=== PATIENT | male | born 1985 | race Hispanic/Latino ===

== ENCOUNTER 2016-10-25 21:57 | Emergency (ER) | payer MEDICARE, SELFPAY ==
[2016-10-25 22:43] VITALS: O2SAT 98
--- NOTE | 2016-10-25 23:09 | ED.PDOC ---
History of Present Illness - General Chief Complaint: Respiratory Problem Stated Complaint: cough and conjestion Time Seen by Provider: 10/25/16 22:07 Source: patient Exam Limitations: no limitations - History of Present Illness Comments: Satated was sick with same symptoms got better but 3 days ago started with nasal congestion and this morning with constant cough. Timing/Duration: other - 3 days ago Cough Quality/Degree: severe, productive cough Possible Cause: illness exposure Improving Factors: nothing Worsening Factors: nothing Associated Symptoms: sinus infection Respiratory Risk Factors: no cause identified Allergies/Adverse Reactions: Allergies NO KNOWN ALLERGY Allergy (Verified 10/25/16 22:00) Home Medications: Ambulatory Orders Aspirin [(None)] 325 mg PO DAILY 06/05/14 Atorvastatin Calcium [Lipitor] 20 mg PO DAILY 06/05/14 Azithromycin Tab [Zithromax] 250 mg PO QDAC #5 tab 06/05/14 Clopidogrel Bisulfate [Plavix] 75 mg PO DAILY 06/05/14 Cyclobenzaprine HCl [Flexeril] 10 mg PO BID PRN #10 tab 06/05/14 Lisinopril 5 mg PO DAILY 06/05/14 Metformin HCl 500 mg PO DAILY 06/05/14 Metoprolol Tartrate 50 mg PO BID 06/05/14 Azithromycin [Zithromax Z-Zoltan] 1 ea PO DAILY #1 pack 12/16/14 Cefuroxime Axetil [Ceftin] 500 mg PO BID #20 tab 10/25/16 Oxymetazoline HCl [Afrin Nasal [place]] 1 spray NA BID PRN #1 spr 10/25/16 Pseudoephedrine HCl [Sudafed Congestion] 30 mg PO BID #30 tab 10/25/16 Review of Systems - Review of Systems Constitutional: States: fever, malaise EENTM: States: see HPI, nose congestion Respiratory: States: see HPI, cough Cardiology: States: no symptoms reported, other - hx of mi with cardiac stents Gastrointestinal/Abdominal: States: no symptoms reported Genitourinary: States: no symptoms reported Musculoskeletal: States: no symptoms reported Skin: States: no symptoms reported Neurological: States: no symptoms reported Endocrine: States: no symptoms reported Past Medical History (General) - Patient Medical History Hx Cardiac Disorders: Yes Hx Congestive Heart Failure: No Hx Hypertension: Yes Hx Diabetes: Yes Surgical History: other - Vaccination History Hx Tetanus, Diphtheria Vaccination: No Hx Influenza Vaccination: No Hx Pneumococcal Vaccination: No Immunizations Up to Date: No - Social History Hx Tobacco Use: No Hx Alcohol Use: No Hx Substance Use: No Hx Substance Use Treatment: No Hx Depression: No Hx Physical Abuse: No Hx Emotional Abuse: No Hx Suspected Abuse: No - Female History Patient is a Female of Child Bearing Age (10 -59 yrs old): No Patient : No Family Medical History - Family History Father Living Status: Age at (years of age): 50 Cause of : cancer Hx Family Congestive Heart Failure: Yes Hx Cardiac Disease: Yes Hx Family Cancer: Yes Physical Exam - Physical Exam General Appearance: Alert, Comfortable, No apparent distress Eye Exam: bilateral normal ENT Exam: TMs normal, nasal congestion, pharyngeal erythema Neck: non-tender, supple, normal inspection Respiratory: chest non-tender, lungs clear, normal breath sounds, no respiratory distress, no accessory muscle use Cardiovascular/Chest: normal peripheral pulses, regular rate, rhythm, no edema, no gallop, no JVD, no murmur Gastrointestinal/Abdominal: normal bowel sounds, non tender, soft, no organomegaly Extremity: normal range of motion, non-tender, normal inspection Neurologic: alert, normal mood/affect Skin Exam: normal color, warm/dry Lymphatic: no adenopathy Progress - Progress Progress: 10/25/16 23:39 rapid strep/flu swab negative Departure - Departure Clinical Impression: Sinusitis, acute Qualifiers: Sinusitis location: unspecified location Recurrence: not specified Qualifier Code: (J01.90) Acute sinusitis, unspecified Time of Disposition: 23:41 Disposition: Discharge to Home or Self Care Condition: Good Departure Forms: ED Discharge - Pt. Copy, Patient Portal Self Enrollment Instructions: DI for Sinusitis Prescriptions: Oxymetazoline HCl [Afrin Nasal [place]] 1 spray NA BID PRN #1 spr PRN Reason: Congestion Cefuroxime Axetil [Ceftin] 500 mg PO BID #20 tab Pseudoephedrine HCl [Sudafed Congestion] 30 mg PO BID #30 tab Home Medications: Ambulatory Orders Aspirin [(None)] 325 mg PO DAILY 06/05/14 Atorvastatin Calcium [Lipitor] 20 mg PO DAILY 06/05/14 Azithromycin Tab [Zithromax] 250 mg PO QDAC #5 tab 06/05/14 Clopidogrel Bisulfate [Plavix] 75 mg PO DAILY 06/05/14 Cyclobenzaprine HCl [Flexeril] 10 mg PO BID PRN #10 tab 06/05/14 Lisinopril 5 mg PO DAILY 06/05/14 Metformin HCl 500 mg PO DAILY 06/05/14 Metoprolol Tartrate 50 mg PO BID 06/05/14 Azithromycin [Zithromax Z-Zoltan] 1 ea PO DAILY #1 pack 12/16/14 Cefuroxime Axetil [Ceftin] 500 mg PO BID #20 tab 10/25/16 Oxymetazoline HCl [Afrin Nasal [place]] 1 spray NA BID PRN #1 spr 10/25/16 Pseudoephedrine HCl [Sudafed Congestion] 30 mg PO BID #30 tab 10/25/16
[2016-10-25] MEDS ORDERED: diphenhydrAMINE HCL 25 MG CAP PO ONE (23:41)
[2016-10-25] MEDS ORDERED: CEFUROXIME AXETIL TAB 250 MG TAB PO ONE (23:49)
[2016-10-25] MEDS ORDERED: DEXTROMET/GUAIFENESIN 600/30 TAB PO ONE (23:50)
[2016-10-26 00:06] VITALS: BP 122/78; TEMP 99.4
[2016-10-26] MEDS ORDERED: DEXTROMET/GUAIFENESIN 600/30 TAB PO SCH (09:00)
== END 2016-10-25 23:55 | disposition home or self-care (01) ==
LOC: ER 21:57
DX: J01.90 Acute sinusitis, unspecified (principal); I25.2 Old myocardial infarction; I10 Essential (primary) hypertension; E11.9 Type 2 diabetes mellitus without complications; Z98.61 Coronary angioplasty status; Z79.82 Long term (current) use of aspirin; Z79.02 Long term (current) use of antithrombotics/antiplatelets; Z79.899 Other long term (current) drug therapy
CPT/HCPCS: 87070; 87804; 87880; Q0163

== ENCOUNTER 2018-01-12 16:20 | Emergency (ER) | payer MEDICARE ==
[2018-01-12] MEDS ORDERED: SODIUM CHLORIDE 0.9% 1000ML 1,000 ML IVS ONE ×2 (16:45→18:42)
[2018-01-12 16:57] VITALS: BP 130/83; TEMP 97.8; O2SAT 97
--- NOTE | 2018-01-12 17:03 | RAD ---
EXAM DESCRIPTION: Abdomen Series CLINICAL HISTORY: 32 years Male ,right-sided abdominal pain for one week, 15 pound weight loss in the last month COMPARISON: None. TECHNIQUE: Frontal view chest x-ray and two views of the abdomen. FINDINGS: The cardiomediastinal silhouette appears unremarkable. No consolidating infiltrates or pleural effusions. Moderate fecal material in the colon. No free air is identified beneath the hemidiaphragms. No dilated loops of bowel to suggest obstruction. IMPRESSION: No acute plain film abnormality is identified. Electronically signed by: Dian Wheatley MD 01/12/2018 5:00 PM CDT
[2018-01-12] MEDS ORDERED: MAGNESIUM SULFATE PREMIX 2GM 2 GM in PREMIX BAG 1 BAG IVPB ONE (17:29)
[2018-01-12] MEDS ORDERED: ONDANSETRON ODT 8 MG TAB SL ONE (17:30)
[2018-01-12] MEDS ORDERED: ALUMINUM & MAGNESIUM HYDROXIDE 30 ML UD PO ONE (17:30)
[2018-01-12] MEDS ORDERED: MAGNESIUM SULFATE PREMIX 2GM 50 ML IVPB ONE (17:47)
--- NOTE | 2018-01-12 18:11 | CT ---
CT abdomen and pelvis with contrast on 01/12/2018 CLINICAL INDICATION: Right-sided abdominal pain TECHNIQUE: Multiple axial images are obtained throughout the abdomen and pelvis following the administration of IV contrast. This exam was performed according to our departmental dose-optimization program, which includes automated exposure control, adjustment of the mA and/or kV according to patient size and/or use of iterative reconstruction technique. Total DLP is 704.36 mGy*cm. COMPARISON: 06/05/2014 FINDINGS: Abdomen: There is minimal right basilar atelectasis. The lung bases are otherwise clear. Right-sided gynecomastia is partially imaged. There is fatty infiltration of the liver. The solid abdominal organs are otherwise unremarkable. There is no abdominal adenopathy. There is no free fluid or free air within the abdomen. The abdominal portion of the GI tract is unremarkable. Pelvis: There is no free fluid in the pelvis. There is calcification of the vas deferens indicative of diabetes. There is no pelvic adenopathy. The pelvic portion of the GI tract including the appendix is unremarkable. No acute bony abnormality is noted. IMPRESSION: 1. Fatty infiltration of the liver. 2. No acute abnormality. Electronically signed by: Oracio Irby 01/12/2018 6:09 PM CDT
[2018-01-12] MEDS ORDERED: SUCRALFATE 1 GM/10 ML 1 GM UD PO ONE (18:43)
[2018-01-12] MEDS ORDERED: MAGNESIUM HYDROXIDE 30 ML UD PO ONE (19:22)
--- NOTE | 2018-01-12 19:31 | ED.PDOC ---
History of Present Illness - General Chief Complaint: Abdominal Pain Stated Complaint: ABDOMINAL PAIN Time Seen by Provider: 01/12/18 16:45 Source: patient Exam Limitations: no limitations - History of Present Illness Initial Comments: the patient's 32-year-old male presenting to the emergency room secondary to abdominal pain for last week. He has been off of his diabetes medications for some time. He has been having some abdominal cramping but no definite fevers. No diarrhea. He does have some constipation issues. He has been nauseated and had a poor appetite. He is having pain mainly in the right side of the abdomen.more significantly he has had a 17 pound weight loss in the last 2 months. No history of any cancer. He still has his gallbladder and appendix. Physical exam shows diffuse discomfort on the right side. No rebound or peritoneal signs. Moderate stool is palpable. Timing/Duration: unsure Severity: moderate Improving Factors: nothing Worsening Factors: nothing Associated Symptoms: loss of appetite, malaise, nausea/vomiting Allergies/Adverse Reactions: Allergies NO KNOWN ALLERGY Allergy (Verified 10/25/16 22:00) Home Medications: Ambulatory Orders Aspirin [(None)] 325 mg PO DAILY 06/05/14 Atorvastatin Calcium [Lipitor] 20 mg PO DAILY 06/05/14 Azithromycin Tab [Zithromax] 250 mg PO QDAC #5 tab 06/05/14 Clopidogrel Bisulfate [Plavix] 75 mg PO DAILY 06/05/14 Cyclobenzaprine HCl [Flexeril] 10 mg PO BID PRN #10 tab 06/05/14 Lisinopril 5 mg PO DAILY 06/05/14 Metformin HCl 500 mg PO DAILY 06/05/14 Metoprolol Tartrate 50 mg PO BID 06/05/14 Azithromycin [Zithromax Z-Zoltan] 1 ea PO DAILY #1 pack 12/16/14 Cefuroxime Axetil [Ceftin] 500 mg PO BID #20 tab 10/25/16 Oxymetazoline HCl [Afrin Nasal [place]] 1 spray NA BID PRN #1 spr 10/25/16 Pseudoephedrine HCl [Sudafed Congestion] 30 mg PO BID #30 tab 10/25/16 Review of Systems - Review of Systems Constitutional: States: malaise, weakness EENTM: States: no symptoms reported Respiratory: States: no symptoms reported Cardiology: States: no symptoms reported Gastrointestinal/Abdominal: States: abdominal pain, nausea Genitourinary: States: no symptoms reported Musculoskeletal: States: other - generalized body aches Skin: States: no symptoms reported Neurological: States: no symptoms reported Endocrine: States: unexplained weight loss All other Systems: No Change from Baseline Past Medical History (General) - Patient Medical History Hx Cardiac Disorders: Yes Hx Congestive Heart Failure: No Hx Hypertension: Yes Hx Diabetes: Yes Surgical History: other - Vaccination History Hx Tetanus, Diphtheria Vaccination: No Hx Influenza Vaccination: No Hx Pneumococcal Vaccination: No - Social History Hx Tobacco Use: No Hx Alcohol Use: No Hx Substance Use: No Hx Substance Use Treatment: No Hx Depression: No Hx Physical Abuse: No Hx Emotional Abuse: No Hx Suspected Abuse: No - Female History Patient : No Family Medical History - Family History Father Living Status: Age at (years of age): 50 Cause of : cancer Hx Family Congestive Heart Failure: Yes Hx Cardiac Disease: Yes Hx Family Cancer: Yes Physical Exam - Physical Exam General Appearance: Alert, No apparent distress Eye Exam: bilateral normal Ears, Nose, Throat: normal ENT inspection, normal pharynx Neck: full range of motion, supple Respiratory: lungs clear, normal breath sounds, no respiratory distress, no accessory muscle use Cardiovascular/Chest: normal peripheral pulses, regular rate, rhythm, no edema Peripheral Pulses: radial,right: 2+, radial,left: 2+, dorsalis pedis,right: 2+, dorsalis pedis,left: 2+ Gastrointestinal/Abdominal: non tender - mild right-sided discomfort. Palpable stool. 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 Workup indicates dehydration and poorly controlled diabetes along with severe constipation as the cause. The patient needs to increase his fluid intake. He has received 2 L of IV fluids here today. He was also given a dose of milk of magnesia for constipation. He needs to take MiraLAX daily for the next week. Additionally he needs to get his blood sugars under control and get his medication filled that has already been written for him. He should also cotton picker some generic Pepcid over-the- counter and take it twice daily for the next 2 weeks. ER warnings were given for any worsening. He should follow up with his primary care doctor in the middle of the coming week. - Results/Orders Results/Orders: Laboratory Tests 01/12/18 01/12/18 01/12/18 16:46 17:05 17:05 WBC 9.9 RBC 5.67 Hgb 18.4 H Hct 52.5 H MCV 92.7 MCH 32.4 H MCHC 35.1 RDW 13.0 Plt Count 155 MPV 10.1 Absolute Neuts (auto) 6.80 Absolute Lymphs (auto) 2.10 Absolute Monos (auto) 0.80 Absolute Eos (auto) 0.10 Absolute Basos (auto) 0.00 Neutrophils % 69.0 Lymphocytes % 21.7 Monocytes % 8.4 Eosinophils % 0.6 L Basophils % 0.3 PT 11.2 INR 0.990 PTT (SP) 31.8 D-Dimer, Quantitative < 230 Sodium Potassium Chloride Carbon Dioxide Anion Gap BUN Creatinine BUN/Creatinine Ratio Random Glucose Serum Osmolality Lactic Acid Calcium Magnesium Total Bilirubin AST ALT Alkaline Phosphatase LD Total Creatine Kinase 69 CK-MB (CK-2) 1.0 CK-MB (CK-2) % Not Reportable Troponin I < 0.02 B-Natriuretic Peptide 10.3 Serum Total Protein Albumin Globulin Albumin/Globulin Ratio Amylase 34 Lipase TSH Urine Color Urine Appearance Urine pH Ur Specific [place] Urine Protein Urine Glucose (UA) Urine Ketones Urine Blood Urine Nitrite Urine Bilirubin Urine Urobilinogen Ur Leukocyte Esterase Urine RBC Urine WBC Ur Epithelial Cells Urine Bacteria 01/12/18 01/12/18 01/12/18 17:05 17:05 18:31 WBC RBC Hgb Hct MCV MCH MCHC RDW Plt Count MPV Absolute Neuts (auto) Absolute Lymphs (auto) Absolute Monos (auto) Absolute Eos (auto) Absolute Basos (auto) Neutrophils % Lymphocytes % Monocytes % Eosinophils % Basophils % PT INR PTT (SP) D-Dimer, Quantitative Sodium 135 Potassium 3.4 L Chloride 97 L Carbon Dioxide 28 Anion Gap 13.4 BUN 12 Creatinine 0.53 L BUN/Creatinine Ratio 22.6 H Random Glucose 235 H Serum Osmolality 277.4 Lactic Acid 1.1 Calcium 9.6 Magnesium 1.7 L Total Bilirubin 1.3 H AST 15 ALT 15 Alkaline Phosphatase 81 LD Total 92 Creatine Kinase CK-MB (CK-2) CK-MB (CK-2) % Troponin I B-Natriuretic Peptide Serum Total Protein 7.8 Albumin 4.3 Globulin 3.5 Albumin/Globulin Ratio 1.2 Amylase Lipase 75 H TSH 1.21 Urine Color Yellow Urine Appearance Clear Urine pH 5.0 Ur Specific [place] 1.010 Urine Protein Negative Urine Glucose (UA) 500 H Urine Ketones 40 H Urine Blood Negative Urine Nitrite Negative Urine Bilirubin Negative Urine Urobilinogen 1.0 Ur Leukocyte Esterase Negative Urine RBC 0 Urine WBC 0-1 Ur Epithelial Cells 0-[address] scan of abdomen and pelvis shows no acute pathology. Acute abdominal series shows large amount of stool. Departure - Departure Clinical Impression: Dehydration Uncontrolled diabetes mellitus Qualifiers: Diabetes mellitus type: type 2 Diabetes mellitus complication status: with unspecified complications Diabetes mellitus intermediate insulin use: without intermediate use Qualified Code(s): E11.8 - Type 2 diabetes mellitus with unspecified complications; E11.65 - Type 2 diabetes mellitus with hyperglycemia Constipation Qualifiers: Constipation type: unspecified constipation type Qualified Code(s): K59.00 - Constipation, unspecified Disposition: Discharge to Home or Self Care Condition: Fair Departure Forms: ED Discharge - Pt. Copy, Patient Portal Self Enrollment Diet: diabetic diet Activity: increase activity as tolerated Referrals: Patricia Ghosh NP [Primary Care Provider] - 1-5 Days Home Medications: Ambulatory Orders Aspirin [(None)] 325 mg PO DAILY 06/05/14 Atorvastatin Calcium [Lipitor] 20 mg PO DAILY 06/05/14 Azithromycin Tab [Zithromax] 250 mg PO QDAC #5 tab 06/05/14 Clopidogrel Bisulfate [Plavix] 75 mg PO DAILY 06/05/14 Cyclobenzaprine HCl [Flexeril] 10 mg PO BID PRN #10 tab 06/05/14 Lisinopril 5 mg PO DAILY 06/05/14 Metformin HCl 500 mg PO DAILY 06/05/14 Metoprolol Tartrate 50 mg PO BID 06/05/14 Azithromycin [Zithromax Z-Zoltan] 1 ea PO DAILY #1 pack 12/16/14 Cefuroxime Axetil [Ceftin] 500 mg PO BID #20 tab 10/25/16 Oxymetazoline HCl [Afrin Nasal [place]] 1 spray NA BID PRN #1 spr 10/25/16 Pseudoephedrine HCl [Sudafed Congestion] 30 mg PO BID #30 tab 10/25/16 Additional Instructions: the patient is a 32-year-old male presenting to the emergency room with abdominal pain and weight loss. Workup indicates dehydration and poorly controlled diabetes along with severe constipation as the cause. The patient needs to increase his fluid intake. He has received 2 L of IV fluids here today. He was also given a dose of milk of magnesia for constipation. He needs to take MiraLAX daily for the next week. Additionally he needs to get his blood sugars under control and get his medication filled that has already been written for him. He should also cotton picker some generic Pepcid over-the- counter and take it twice daily for the next 2 weeks. ER warnings were given for any worsening. He should follow up with his primary care doctor in the middle of the coming week.
[2018-01-12] MEDS ORDERED: glyBURIDE 5 MG TAB PO ONE (19:38)
[2018-01-13] MEDS ORDERED: glyBURIDE 5 MG TAB PO ONE (19:34)
== END 2018-01-12 19:59 | disposition home or self-care (01) ==
LOC: ER 16:20
DX: K59.00 Constipation, unspecified (principal); E11.65 Type 2 diabetes mellitus with hyperglycemia; E86.0 Dehydration; I10 Essential (primary) hypertension; Z79.899 Other long term (current) drug therapy; Z79.82 Long term (current) use of aspirin; Z79.02 Long term (current) use of antithrombotics/antiplatelets; Z79.84 Long term (current) use of oral hypoglycemic drugs
CPT/HCPCS: 36415; 74019; 74177; 80053; 81001; 82150; 82550; 82553; 83605; 83615; 83690; 83735; 83880; 84443; 84484; 85025; 85379; 85610; 85730; 87040; J3475; J7030

== ENCOUNTER 2019-02-22 12:52 | Emergency (ER) | payer MEDICARE, MEDICAID ==
[2019-02-22 13:18] VITALS: BP 107/66; TEMP 98; O2SAT 98
--- NOTE | 2019-02-22 13:26 | ED.PDOC ---
History of Present Illness - General Chief Complaint: General Stated Complaint: pain in left leg,numbness to left foot Time Seen by Provider: 02/22/19 13:20 Source: patient Exam Limitations: no limitations - History of Present Illness Initial Comments: Narinder Mathews 34 y/o male with history of PAD and CAD had stent angioplasty on the right femoral artery 19 Feb 2019 came to ER with pain on his left thigh going down his leg today and numbness at the bottom of his foot since yesterday.Pain on weight bearing on the left lower extremity. Timing/Duration: 24 hours, constant Severity: moderate Improving Factors: rest Worsening Factors: movement Associated Symptoms: other - see hpi Allergies/Adverse Reactions: Allergies NO KNOWN ALLERGY Allergy (Verified 10/25/16 22:00) Home Medications: Ambulatory Orders Aspirin [(None)] 325 mg PO DAILY 06/05/14 Atorvastatin Calcium [Lipitor] 20 mg PO DAILY 06/05/14 Azithromycin Tab [Zithromax] 250 mg PO QDAC #5 tab 06/05/14 Clopidogrel Bisulfate [Plavix] 75 mg PO DAILY 06/05/14 Cyclobenzaprine HCl [Flexeril] 10 mg PO BID PRN #10 tab 06/05/14 Lisinopril 5 mg PO DAILY 06/05/14 Metformin HCl 500 mg PO DAILY 06/05/14 Metoprolol Tartrate 50 mg PO BID 06/05/14 Azithromycin [Zithromax Z-Zoltan] 1 ea PO DAILY #1 pack 12/16/14 Cefuroxime Axetil [Ceftin] 500 mg PO BID #20 tab 10/25/16 Oxymetazoline HCl [Afrin Nasal [place]] 1 spray NA BID PRN #1 spr 10/25/16 Pseudoephedrine HCl [Sudafed Congestion] 30 mg PO BID #30 tab 10/25/16 Review of Systems - Review of Systems Musculoskeletal: States: see HPI, other - leg pain Past Medical History (General) - Patient Medical History Hx Stroke: No Hx Cardiac Disorders: Yes - DC's Hx Congestive Heart Failure: No Hx Hypertension: Yes Hx Diabetes: Yes Surgical History: other - cardiac and femoral stent - Vaccination History Hx Tetanus, Diphtheria Vaccination: No Hx Influenza Vaccination: No Hx Pneumococcal Vaccination: No - Social History Hx Tobacco Use: Yes Hx Alcohol Use: No Hx Substance Use: No Hx Substance Use Treatment: No Hx Depression: No Hx Physical Abuse: No Hx Emotional Abuse: No Hx Suspected Abuse: No - Female History Patient : No Family Medical History - Family History Father Living Status: Age at (years of age): 50 Cause of : cancer Hx Family Congestive Heart Failure: Yes Hx Cardiac Disease: Yes Hx Family Cancer: Yes - dad-pancreas Physical Exam - Physical Exam General Appearance: Alert, Comfortable, No apparent distress Eye Exam: bilateral normal Ears, Nose, Throat: hearing grossly normal, normal ENT inspection Neck: non-tender, full range of motion, supple, normal inspection Respiratory: chest non-tender, lungs clear, normal breath sounds Cardiovascular/Chest: normal peripheral pulses, regular rate, rhythm, no murmur Peripheral Pulses: dorsalis pedis,right: 2+, dorsalis pedis,left: 2+ Gastrointestinal/Abdominal: non tender, soft Back Exam: no CVA tenderness, no vertebral tenderness Extremity: no pedal edema, no calf tenderness, other - mild swelling noted left leg Neurologic: no motor/sensory deficits, alert, oriented x 3 Skin Exam: normal color, warm/dry Progress - Progress Progress: 02/22/19 13:39 Vital Signs 02/22/19 13:13 Temperature 98 F Pulse Rate [ 94 H Left Brachial] Respiratory 20 Rate Blood Pressure 107/66 [Left Arm] O2 Sat by Pulse [address] Hooper engineering group manager senior microsoft consultant for Dr. Isaacs wants patient to go to [facility] and he will check the patient. Departure - Departure Clinical Impression: Lower extremity pain, left, S/P angioplasty with stent, PAD (peripheral artery disease) Occlusion of stent of peripheral artery Qualifiers: Encounter type: initial encounter Qualified Code(s): T82.856A - Stenosis of peripheral vascular stent, initial encounter Time of Disposition: 13:46 Disposition: Transfer to Hospital Condition: Fair Departure Forms: ED Discharge - Pt. Copy, Patient Portal Self Enrollment Referrals: Patricia Ghosh NP [Primary Care Provider] - 1-2 Weeks Home Medications: Ambulatory Orders Aspirin [(None)] 325 mg PO DAILY 06/05/14 Atorvastatin Calcium [Lipitor] 20 mg PO DAILY 06/05/14 Azithromycin Tab [Zithromax] 250 mg PO QDAC #5 tab 06/05/14 Clopidogrel Bisulfate [Plavix] 75 mg PO DAILY 06/05/14 Cyclobenzaprine HCl [Flexeril] 10 mg PO BID PRN #10 tab 06/05/14 Lisinopril 5 mg PO DAILY 06/05/14 Metformin HCl 500 mg PO DAILY 06/05/14 Metoprolol Tartrate 50 mg PO BID 06/05/14 Azithromycin [Zithromax Z-Zoltan] 1 ea PO DAILY #1 pack 12/16/14 Cefuroxime Axetil [Ceftin] 500 mg PO BID #20 tab 10/25/16 Oxymetazoline HCl [Afrin Nasal [place]] 1 spray NA BID PRN #1 spr 10/25/16 Pseudoephedrine HCl [Sudafed Congestion] 30 mg PO BID #30 tab 10/25/16 Additional Instructions: Patient prefers to go by POV has stable vital signs and good pulses Transfer to Outside Facility - Transfer Information Accepting Provider:: Dr. 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
== END 2019-02-22 13:52 | disposition short-term general hospital (02) ==
LOC: ER 12:52
DX: T82.856A Stenosis of peripheral vascular stent, initial encounter (principal); M79.652 Pain in left thigh; I73.9 Peripheral vascular disease, unspecified; I25.2 Old myocardial infarction; I25.10 Atherosclerotic heart disease of native coronary artery without angina pectoris; I10 Essential (primary) hypertension; E11.9 Type 2 diabetes mellitus without complications; Z95.820 Peripheral vascular angioplasty status with implants and grafts; Z95.5 Presence of coronary angioplasty implant and graft; Z87.891 Personal history of nicotine dependence; Z79.899 Other long term (current) drug therapy; Z79.84 Long term (current) use of oral hypoglycemic drugs; Z79.82 Long term (current) use of aspirin

== ENCOUNTER 2019-03-22 11:10 | Emergency (ER) | payer MEDICARE, MEDICAID ==
--- NOTE | 2019-03-22 11:37 | ED.PDOC ---
History of Present Illness - General Chief Complaint: GI Problem Stated Complaint: 2 week hx of lower abdominal pain Time Seen by Provider: 03/22/19 11:32 Information Source: patient Exam Limitations: no limitations - History of Present Illness Initial Comments: THIS PATIENT COMES TO THE ED WITH A TWO WEEK HX OF PROGRESSIVELY WORSENING PAIN TO THE LLQ AREA. DENIES ANY FEVER BUT HE DOES HAVE A HX OF CAD AND PERIPHERAL VASCULAR DISEASE. Abdominal Pain Onset Location: LLQ Quality: severe Timing/Duration: changing over time Improving Factors: nothing Worsening Factors: nothing Associated Symptoms: back pain Review of Systems - Review of Systems Constitutional: States: no symptoms reported EENTM: States: no symptoms reported Respiratory: States: no symptoms reported Cardiology: States: no symptoms reported Gastrointestinal/Abdominal: States: abdominal pain, constipation Genitourinary: States: no symptoms reported Musculoskeletal: States: no symptoms reported Skin: States: no symptoms reported Neurological: States: no symptoms reported Endocrine: States: no symptoms reported Hematologic/Lymphatic: States: no symptoms reported Past Medical History (General) - Patient Medical History Hx Stroke: No Hx of COPD: No Hx Cardiac Disorders: Yes Hx Congestive Heart Failure: No Hx Hypertension: Yes Hx Diabetes: Yes Hx Cancer: No Surgical History: other - Vaccination History Hx Tetanus, Diphtheria Vaccination: No Hx Influenza Vaccination: No Hx Pneumococcal Vaccination: No - Social History Hx Tobacco Use: Yes Hx Alcohol Use: No Hx Substance Use: No Hx Substance Use Treatment: No Hx Depression: No Hx Physical Abuse: No Hx Emotional Abuse: No Hx Suspected Abuse: No - Female History Patient is a Female of Child Bearing Age (10 -59 yrs old): No Patient : No Family Medical History - Family History Father Living Status: Age at (years of age): 50 Cause of : cancer Hx Family Congestive Heart Failure: Yes Hx Cardiac Disease: Yes Hx Family Cancer: Yes - dad-pancreas Physical Exam - Physical Exam General Appearance: Alert, Obvious distress, Ill Appearing, Well Developed, Well Nourished Eyes, Ears, Nose, Throat Exam: PERRL/EOMI, normal ENT inspection Neck: non-tender, full range of motion, supple Respiratory: chest non-tender, lungs clear, normal breath sounds, no respiratory distress, no accessory muscle use Cardiovascular/Chest: normal peripheral pulses, regular rate, rhythm, no edema, no gallop, no JVD, no murmur Gastrointestinal/Abdominal: normal bowel sounds, soft, no organomegaly, no pulsatile mass, tenderness, other - THE ABDOMEN IS SOFT, NO GUARDING AND NO REBOUND TENDERNESS. THERE ARE NO MASSES NOTED. THERE IS PAIN TO THE SUPRAPUBIC AREA AND THE LLQ. Male Genitalia: no hernia Rectal Exam: deferred Back Exam: normal inspection Extremity: normal range of motion, non-tender, normal inspection Skin Exam: normal color, warm/dry Progress - Progress Progress: 03/22/19 12:43 ct abdomen and pelvis is negative for acute process. - Results/Orders Results/Orders: 03/22/19 11:34 Hold Metformin x 48Hrs [id number] EKG Assessment ONCE 03/22/19 11:45 EKG STAT Laboratory Results WBC 8.1 K/mm3 (4.8-10.8) 03/22/19 11:49 RBC 5.02 M/mm3 (4.70-6.10) 03/22/19 11:49 Hgb 16.1 gm/dL (14.0-18.0) 03/22/19 11:49 Hct 47.1 % (42.0-52.0) 03/22/19 11:49 MCV 93.8 fl (80.0-94.0) 03/22/19 11:49 MCH 32.1 pg (27.0-31.0) H 03/22/19 11:49 MCHC 34.3 g/dL (33.0-37.0) 03/22/19 11:49 RDW 13.8 % (11.5-14.5) 03/22/19 11:49 Plt Count 133 K/mm3 (130-400) 03/22/19 11:49 MPV 9.5 fl (7.40-10.4) 03/22/19 11:49 Absolute Neuts (auto) 5.20 K/uL (1.8-6.8) 03/22/19 11:49 Absolute Lymphs (auto) 2.00 K/uL (1.0-3.4) 03/22/19 11:49 Absolute Monos (auto) 0.80 K/uL (0.2-0.8) 03/22/19 11:49 Absolute Eos (auto) 0.10 K/uL (0.0-0.4) 03/22/19 11:49 Absolute Basos (auto) 0.00 K/uL (0.0-0.1) 03/22/19 11:49 Neutrophils % 63.9 % (42.0-78.0) 03/22/19 11:49 Lymphocytes % 24.7 % (20.0-50.0) 03/22/19 11:49 Monocytes % 9.7 % (2.0-9.0) H 03/22/19 11:49 Eosinophils % 1.5 % (1.0-5.0) 03/22/19 11:49 Basophils % 0.2 % (0.0-2.0) 03/22/19 11:49 Sodium 136 mmol/L (135-145) 03/22/19 11:49 Potassium 3.9 mmol/L (3.6-5.0) 03/22/19 11:49 Chloride 101 mmol/L (101-111) 03/22/19 11:49 Carbon Dioxide 27 mmol/L (21-31) 03/22/19 11:49 Anion Gap 11.9 (12-18) L 03/22/19 11:49 BUN 15 mg/dL (7-18) 03/22/19 11:49 Creatinine 0.56 mg/dL (0.6-1.3) L 03/22/19 11:49 BUN/Creatinine Ratio 26.8 (10-20) H 03/22/19 11:49 Random Glucose 178 mg/dL (70-105) H 03/22/19 11:49 Serum Osmolality 277.2 mOsm/L (275-295) 03/22/19 11:49 Lactic Acid 0.8 mmol/L (0.5-2.2) 03/22/19 11:49 Calcium 9.0 mg/dL (8.4-10.2) 03/22/19 11:49 Total Bilirubin 1.2 mg/dL (0.2-1.0) H 03/22/19 11:49 AST 15 IU/L (10-42) 03/22/19 11:49 ALT 13 IU/L (10-60) 03/22/19 11:49 Alkaline Phosphatase 65 IU/L (42-121) 03/22/19 11:49 Serum Total Protein 7.3 gm/dL (6.4-8.2) 03/22/19 11:49 Albumin 4.1 g/dl (3.2-5.5) 03/22/19 11:49 Globulin 3.2 gm/dL (2.3-3.5) 03/22/19 11:49 Albumin/Globulin Ratio 1.3 (1.1-1.9) 03/22/19 11:49 Lipase 28 U/L (22-51) 03/22/19 11:49 Urine Color Yellow (Yellow) 03/22/19 12:25 Urine Appearance Clear (Clear) 03/22/19 12:25 Urine pH 7.5 (4.5-7.8) 03/22/19 12:25 Ur Specific [place] 1.015 (1.005-1.030) 03/22/19 12:25 Urine Protein Trace mg/dL 03/22/19 12:25 Urine Glucose (UA) 500 mg/dL (Negative) H 03/22/19 12:25 Urine Ketones 15 mg/dL (NEGATIVE) H 03/22/19 12:25 Urine Blood Negative (Negative) 03/22/19 12:25 Urine Nitrite Negative 03/22/19 12:25 Urine Bilirubin Negative (NEGATIVE) 03/22/19 12:25 Urine Urobilinogen 4.0 mg/dL (0.2-1.0) H 03/22/19 12:25 Ur Leukocyte Esterase Negative (Negative) 03/22/19 12:25 Urine RBC 0 /hpf 03/22/19 12:25 Urine WBC 0 /hpf 03/22/19 12:25 Ur Epithelial Cells 0 /hpf 03/22/19 12:25 Urine Bacteria 0 03/22/19 12:25 Departure - Departure Clinical Impression: Abdominal pain Qualifiers: Abdominal location: left lower quadrant Qualified Code(s): R10.32 - Left lower quadrant pain Constipation Qualifiers: Constipation type: slow transit constipation Qualified Code(s): K59.01 - Slow transit constipation Time of Disposition: 12:47 Disposition: Discharge to Home or Self Care Condition: Good Departure Forms: ED Discharge - Pt. Copy, Patient Portal Self Enrollment Diet: resume usual diet Referrals: Patricia Ghosh NP [Primary Care Provider] - 1-2 Weeks Prescriptions: Docusate Sodium [Colace Cap] 100 mg PO BID #20 cap Hyoscyamine Sulfate [Levsin] 0.125 mg PO TID #15 tab Home Medications: Ambulatory Orders Aspirin [(None)] 325 mg PO DAILY 06/05/14 Atorvastatin Calcium [Lipitor] 20 mg PO DAILY 06/05/14 Azithromycin Tab [Zithromax] 250 mg PO QDAC #5 tab 06/05/14 Clopidogrel Bisulfate [Plavix] 75 mg PO DAILY 06/05/14 Cyclobenzaprine HCl [Flexeril] 10 mg PO BID PRN #10 tab 06/05/14 Lisinopril 5 mg PO DAILY 06/05/14 Metformin HCl [Metformin Hydrochloride] 500 mg PO DAILY 06/05/14 Metoprolol Tartrate 50 mg PO BID 06/05/14 Azithromycin [Zithromax Z-Zoltan] 1 ea PO DAILY #1 pack 12/16/14 Cefuroxime Axetil [Ceftin] 500 mg PO BID #20 tab 10/25/16 Oxymetazoline HCl [Afrin Nasal [place]] 1 spray NA BID PRN #1 spr 10/25/16 Pseudoephedrine HCl [Sudafed Congestion] 30 mg PO BID #30 tab 10/25/16 Docusate Sodium [Colace Cap] 100 mg PO BID #20 cap 03/22/19 Hyoscyamine Sulfate [Levsin] 0.125 mg PO TID #15 tab 03/22/19
[2019-03-22] MEDS: MORPHINE SULFATE INJ 10 MG/ML VIAL IV ONE (11:52)
[2019-03-22] MEDS: ONDANSETRON INJ 4 MG/2 ML VIAL IV ONE (11:53)
--- NOTE | 2019-03-22 12:26 | CT ---
EXAM: CT Abdomen and Pelvis With Intravenous Contrast CLINICAL HISTORY: The patient is 34 years old and is Male; abdominal pain TECHNIQUE: Axial computed tomography images of the abdomen and pelvis with intravenous contrast. Sagittal and coronal reformatted images were created and reviewed. This CT exam was performed using one or more of the following dose reduction techniques: automated exposure control, adjustment of the mA and/or kV according to patient size, and/or use of iterative reconstruction technique. COMPARISON: CT abdomen pelvis from 01/12/2018 FINDINGS: LUNG BASES: Small calcified granuloma in the left upper lobe. ABDOMEN: LIVER: Mild fatty infiltration of the liver. No obvious mass. GALLBLADDER AND BILE DUCTS: Unremarkable. No calcified stones. No significant biliary ductal dilatation. PANCREAS: Unremarkable. No ductal dilation. No obvious mass. SPLEEN: Unremarkable. No splenomegaly. ADRENALS: Unremarkable. No adrenal nodules or masses identified. KIDNEYS AND URETERS: Unremarkable. No solid mass. No hydronephrosis. STOMACH AND BOWEL: No evidence of bowel obstruction. No significant bowel wall thickening appreciated. PELVIS: APPENDIX: The appendix is unremarkable. BLADDER: Unremarkable. No obvious mass. REPRODUCTIVE: Mild enlargement of the prostate. ABDOMEN and PELVIS: INTRAPERITONEAL SPACE: Unremarkable. No free air. No significant fluid collection. BONES/JOINTS: Mild degenerative changes of the spine. No acute fracture. No dislocation. SOFT TISSUES: No significant abnormalities in the superficial soft tissues. VASCULATURE: Atherosclerotic calcifications. A stent is in place within the left common iliac artery. This is patent. No aortic aneurysm. LYMPH NODES: No significant lymph node enlargement. IMPRESSION: No acute findings visualized in the abdomen or pelvis. Electronically signed by: Jen Shepherd MD 03/22/2019 12:23 PM CDT
[2019-03-22] MEDS: MAGNESIUM CITRATE 300 ML BTTL PO ONE (12:53)
[2019-03-22 13:01] VITALS: BP 102/70; TEMP 96.2; O2SAT 98
== END 2019-03-22 13:00 | disposition home or self-care (01) ==
LOC: ER 11:10
DX: K59.01 Slow transit constipation (principal); R10.32 Left lower quadrant pain; I25.10 Atherosclerotic heart disease of native coronary artery without angina pectoris; I10 Essential (primary) hypertension; E11.9 Type 2 diabetes mellitus without complications; Z87.891 Personal history of nicotine dependence
CPT/HCPCS: 36415; 74177; 80053; 81001; 83605; 83690; 85025; 93005; J2270; J2405

== ENCOUNTER → 2019-10-27 | Outpatient (CLI) | payer MEDICARE, MEDICAID ==
--- NOTE | 2019-10-27 12:36 | US ---
EXAM DESCRIPTION: Venous Doppler ultrasound,Lower Extremity RT CLINICAL HISTORY: PAIN IN RT CALF COMPARISON: None Available. TECHNIQUE: Right lower extremity venous duplex FINDINGS: Doppler evaluation of the right lower extremity deep veins was performed. Normal color flow is seen in the common femoral, superficial femoral, profunda femoral and greater saphenous veins. Normal flow is seen in the popliteal vein and veins below the knee in the calf. Normal venous compressibility and flow augmentation. IMPRESSION: Negative for evidence of deep venous thrombosis on right lower extremity venous Doppler sonogram. Electronically signed by: Lm Cade MD 10/27/2019 12:35 PM [employer]
== END ==
LOC: US 11:09
PROVIDERS: ATTEND Nurse Practitioner Family
DX: M79.661 Pain in right lower leg (principal)